=== PATIENT | female | born 1970 | race Caucasian/White ===

== ENCOUNTER 2017-08-28 08:59 | Day surgery (SDC) | payer BC ==
--- NOTE | 2017-08-26 16:46 | HP ---
HISTORY AND PHYSICAL: DATE OF ADMISSION: 08/28/2017 - [facility] HISTORY OF PRESENT ILLNESS: A 47-year-old female presents for history and physical prior to scheduled endoluminal radiofrequency ablation of the right short saphenous vein and Giacomini vein. She has a long-standing history of varicose vein disease and underwent endoluminal radiofrequency ablation of the left greater saphenous vein ligation and division of accessory branch with microphlebectomies in 2007. She noted the onset of discomfort of the bilateral lower extremities, has had recurrent varicosities of the left lower extremity approximately 2 years ago. She is experiencing a "toothache in leg" sensation, aching and discomfort pressure sensation and itching sensation. She has worn compression stockings, elevates her legs, and takes antiinflammatories p.r.n. There is no history of phlebitis, DVT, emboli, or leg ulceration. PAST MEDICAL HISTORY/REVIEW OF SYSTEMS: Achilles tendinitis, child x2. PAST SURGICAL HISTORY: Endoluminal radiofrequency ablation of left greater saphenous vein, ligation and division accessory branch with microphlebectomies in 2007, C-sections x2. FAMILY HISTORY: Mother and maternal grandmother with a history of varicose vein disease. Mother also had phlebitis. There is no known family history of leg ulcers or DVT. SOCIAL HISTORY: Teacher. Minimal smoking, quit 20 years ago. Alcohol intake unspecified. PHYSICAL EXAMINATION GENERAL: WN, WD, moderately anxious-appearing pleasant female. VITAL SIGNS: BP 123/74, pulse 101, respiratory rate 18, BMI 29.4. HEENT: WNL. LUNGS: CTA. HEART: RRR without murmurs. ABDOMEN: Benign. EXTREMITIES: Right lower extremity: Varicosities 2 to 4 mm diameter along the right medial leg associated with eczematous skin changes and trace to 1+ ankle edema. DIAGNOSTIC STUDIES: Venous duplex examination: Standing position right lower extremity, the greater saphenous vein is segmentally dilated and incompetent 6.7 mm above the knee level, 7.8 mm below the knee level with greater than 1 second reflux. Reflux is noted at the saphenofemoral junction, which measures 7.6 mm. The upper thigh segment is competent and measures 4.9 mm. The saphenopopliteal junction demonstrates reflux measuring 4.9 mm. The sapheno- popliteal junction demonstrates reflux measuring 4.3 mm with greater than 0.5 seconds reflux. The short saphenous vein is dilated and incompetent measuring 8.2 mm. The Giacomini vein demonstrates reflux greater than 1 second and measuring 7.7 mm. The deep system veins have normal compressibility and color flow. There are no incompetent perforators. ASSESSMENT AND PLAN: CEAP class 1,2,3,4a venous disease of the right lower extremity with reflux demonstrated at the saphenopopliteal junction and the short saphenous vein, Giacomini vein and segmentally in the greater saphenous vein. She is scheduled for endoluminal radiofrequency ablation of the Giacomini vein and short saphenous vein. Risks and benefits of surgery have been discussed including, but not limited to the, risks of pain, infection, bleeding, and DVT. [id number]/[facility] #: [id number] KRISH
[~2017-08-28 08:59] MED LIST: Buffered Lidocaine 0.9% SYRIN* 5 ML/SYR SYRINGE INTRADERM ONE
[2017-08-28] MEDS ORDERED: Ondansetron INJ* 2 MG/ML VIAL IV PRN (11:35)
[2017-08-28] MEDS ORDERED: fentaNYL* 50 MCG/ML 2 ML VIAL (100 MCG VIAL) IV PRN (11:35)
[2017-08-28] MEDS ORDERED: Naloxone* 0.4 MG/ML 1 ML VIAL IV PRN (11:35)
[2017-08-28] MEDS ORDERED: Propofol* 10 MG/ML 20 ML BTL IV PUSH ONE ×3 (11:45→12:55)
[2017-08-28] MEDS ORDERED: Midazolam* 1 MG/ML 2 ML VIAL (2 MG) ONE (11:45)
[2017-08-28] MEDS ORDERED: fentaNYL* 50 MCG/ML 2 ML VIAL (100 MCG VIAL) ONE (11:45)
[2017-08-28] MEDS ORDERED: Lidocaine 2% PF * 5 ML VIAL ONE ×2 (11:59→12:29)
[2017-08-28] MEDS ORDERED: EPINEPHrine AMP 1 MG/ML ONE (11:59)
[2017-08-28] MEDS ORDERED: Lidocaine 2% PF* 10 ML AMP ONE (11:59)
[2017-08-28] MEDS ORDERED: Lidocaine 1% MPF* 2 ML VIAL ONE (12:00)
[2017-08-28] MEDS ORDERED: Polidocanol 1% 20 MG/2 ML AMP IV ONE (12:01)
[2017-08-28] MEDS ORDERED: Sodium Bicarbonate 8.4% SYR* 10 ML SYRINGE ONE (12:02)
[2017-08-28 14:06] VITALS: BP 119/58
--- NOTE | 2017-08-28 23:59 | OP ---
DATE OF OPERATION: 08/28/17 [facility] DATE OF : 74 SURGEON: Lamberto Stevenson MD ANESTHESIA: Local tumescent. PRE-OP DIAGNOSIS: Superficial venous reflux disease of the right lower extremity secondary to an incompetent right short saphenous vein and Giacomini vein. POST-OP DIAGNOSIS: Superficial venous reflux disease of the right lower extremity secondary to an incompetent right short saphenous vein and Giacomini vein. OPERATIVE PROCEDURE: 1. Radiofrequency closure of the right short saphenous vein. 2. Radiofrequency closure of the right Giacomini vein. 3. Microphlebectomies less than 10 incisions. ESTIMATED BLOOD LOSS: Less than 20 cc. INDICATIONS: The patient is a 47-year-old female with history of painful varicose veins of the right lower extremity, history of varicose veins. The patient has tried conservative measures including compression stockings, leg elevation, and this has not helped. A duplex venous scan reveals reflux of the Giacomini vein and right short saphenous vein. DESCRIPTION OF PROCEDURE: The patient was taken to the procedure room. She was placed in standing up position. Mapping of the right shoulder saphenous vein and Giacomini vein was done under ultrasound guidance as well as marking of the varicosity. The patient was then placed in the prone position. She was then prepped and draped in the usual sterile fashion. Lidocaine 1% was used to infiltrate in the lower third of the posterior mid calf, percutaneous cannulation of the short saphenous vein was done in the lower third with a micropuncture kit. Once a small middle and wire were in place, the needle was exchanged for a 7-Serbian 11 cm long introducer sheath that was advanced over the wire inside the short saphenous vein after which, we proceeded to remove the introducer and the wire. The sheath was left in place which was then back bled and flushed with saline. We then proceeded to advance the Fast Track radiofrequency catheter inside the short saphenous vein on the right side positioning the tip of the radiofrequency catheter 2.5 cm from the saphenopopliteal junction right at the bend of the vein into the popliteal. The tip was positioned in this area and after this, tumescent local anesthesia was then infiltrated around the short saphenous vein in the catheter from the entrance point up to the saphenopopliteal junction. After this was completed, single cycles were done with radiofrequency. A total of 3 cycles were done for the short saphenous vein. After this was done, the Giacomini vein would end into a network of varicosities draining towards the popliteal. The vein was accessed in the lower third of the posterior thigh with a micropuncture kit. Once the needle and wire were in place, the needle was exchanged for 7-Serbian 11 cm long introducer sheath that was advanced over the wire. After which, we proceeded to introduce the Fast Track radiofrequency catheter inside the Giacomini vein, advancing the catheter up to the groin area; however, far from the saphenofemoral junction at least 5 cm at which point, the Giacomini vein would come in and drain into the posterior medial axis of the branch. After this was done, tumescent local anesthesia was then infiltrated around the Giacomini vein. The vein was completely extra facial and after the tumescent anesthesia was completed, once again the tip of the catheter was confirmed to be at least 5 cm from the saphenofemoral junction and we then proceeded to activate the radiofrequency unit. Single cycles were delivered to the Giacomini vein. A total of 4 cycles were delivered to the vein and after this was done, there was evidence of closure in the treated vein. However, at the end of the procedure, the popliteal vein and saphenopopliteal junction appeared to be compressible with normal color flow into the vein. After this was completed, the previously marked varicose veins were then removed by small incision in a stab avulsion technique. Less than 10 incisions were performed and after this was completed, incisions were closed with 5-0 Prolene and Steri- Strips. A light pressure dressing was applied to the right lower extremity. The patient tolerated the procedure well. She was recovered, given instructions , and discharged home in good condition. [id number]/[facility] #: [id number] [facility] HOSPITALClarissa
== END 2017-08-28 14:03 | disposition home or self-care (01) ==
LOC: OREAST 08:59
PROVIDERS: ATTEND Surgery
DX: I83.891 Varicose veins of right lower extremity with other complications (principal); M19.90 Unspecified osteoarthritis, unspecified site; M54.9 Dorsalgia, unspecified
CPT/HCPCS: 81025; 88300; J0171; J2001; J2250; J2704; J3010

== ENCOUNTER 2017-09-25 07:18 | Day surgery (SDC) | payer BC ==
[2017-09-25] MEDS ORDERED: Lidocaine 2% PF * 5 ML VIAL ONE (08:27)
[2017-09-25] MEDS ORDERED: Lidocaine 2% PF* 10 ML AMP ONE (08:27)
[2017-09-25] MEDS ORDERED: EPINEPHrine AMP 1 MG/ML ONE (08:27)
[2017-09-25] MEDS ORDERED: Lidocaine 1% MPF* 2 ML VIAL ONE (08:28)
[2017-09-25] MEDS ORDERED: Sodium Bicarbonate 8.4% IV* 50 ML VIAL ONE (08:28)
[2017-09-25] MEDS ORDERED: fentaNYL* 50 MCG/ML 2 ML VIAL (100 MCG VIAL) ONE (08:36)
[2017-09-25] MEDS ORDERED: Midazolam* 1 MG/ML 5 ML VIAL (5 MG) ONE (08:36)
[2017-09-25] MEDS ORDERED: Propofol* 10 MG/ML 20 ML BTL IV PUSH ONE ×2 (08:52→09:12)
[2017-09-25 10:30] VITALS: BP 117/69
--- NOTE | 2017-09-26 01:55 | OP ---
DATE OF OPERATION: 09/25/17 [facility] DATE OF : 74 SURGEON: Lamberto Stevenson MD ANESTHESIA: Local plus MAC. PRE-OP DIAGNOSIS: Superficial venous reflux disease, left lower extremity secondary to an incompetent lower segment greater saphenous vein. POST-OP DIAGNOSIS: Superficial venous reflux disease, left lower extremity secondary to an incompetent lower segment greater saphenous vein. OPERATIVE PROCEDURE: Endovenous laser ablation of the left greater saphenous vein. ESTIMATED BLOOD LOSS: None. DESCRIPTION OF PROCEDURE: The patient was placed in a supine position. She was prepped and draped in the usual sterile fashion after appropriate marking and identification of the operative site. Under sedation, lidocaine 1% was used to infiltrate on the medial aspect of the left leg. Percutaneous cannulation of the greater saphenous vein was done under ultrasound guidance. Once the small needle and wire were in place, the needle was exchanged for a 4- Macedonian catheter. Subsequently, we then proceeded to advance a _guide wire____ up to the end of the opening of the greater saphenous vein, which was about mid thigh. After this was done, we then proceeded to advance the 5-Macedonian catheter over the wire with an introducer until the end of it and after this, the introducer and the wire were removed. The 600 micron laser fiber with a gold tip was advanced via the catheter and positioned at the end of the greater saphenous vein at about mid thigh level. After this was on, tumescent local anesthesia was then infiltrated around the vein in the catheter from the entrance point up to above and the end of the catheter at mid level of the left thigh. After this was done and adequate tumescent local anesthesia being given , we then proceeded to activate the diode laser at 12 salazar continuous. The catheter was then pulled back slowly and gradually delivering a total of 1800 joules to the greater saphenous vein. After this was completed, there was evidence of thickening of the vein. The procedure was well tolerated. The small incision was then closed with 5-0 Prolene and Steri-Strips. Light pressure dressing was applied to the left lower extremity. The patient tolerated the procedure well. She was taken in good condition to recovery room. [id number]/[facility] #: [id number] KRISH
== END 2017-09-25 10:20 | disposition home or self-care (01) ==
LOC: OREAST 07:18
PROVIDERS: ATTEND Surgery
DX: I83.892 Varicose veins of left lower extremity with other complications (principal)
CPT/HCPCS: 81025; J0171; J2001; J2250; J2704; J3010